=== PATIENT | male | born 1990 | race Caucasian/White ===

== ENCOUNTER 2024-04-26 01:08 | Emergency (ER) | payer OTHER, SELFPAY ==
--- NOTE | 2024-04-26 01:13 | ED.GENADULT ---
HPI - General Adult General Time Seen by Provider: 01:13 Date Seen: 04/26/24 Chief complaint: Skin/Abscess/Foreign Body Stated complaint: tongue foreign body Time Seen by Provider: 04/26/24 01:13 Source: patient Mode of arrival: ambulatory Limitations: no limitations History of Present Illness HPI narrative: 33-year-old male who comes in today with a foreign body in his tongue. He has a tongue piercing that was done about a year ago, couple days ago he took out the top portion and stem but the bottom ball was stuck in the tongue. He says since then he has had increased pain and swelling of the tongue. He denies runny nose, cough, difficulty swallowing or breathing. Related Data Home Medications ?Medication ?Instructions ?Recorded ?Confirmed No Known Home Medications 04/26/24 04/26/24 Allergies Allergy/AdvReac Type Severity Reaction Status Date / Time No Known Drug Allergies Allergy Verified 04/26/24 01:21 Exam Narrative: Exam Narrative: General: well nourished , NAD Head: Atraumatic and normocephalic ENT: External ears and external nose are normal. Moderate swelling of the tongue with some dysarthria, no open puncture wound, question of firm nodule in the middle of the tongue about 1 cm from the tip. Posterior pharynx without erythema. No cervical adenopathy, no tenderness of the anterior cervical area. Patient is handling secretions Eyes: Conjunctiva clear, pupils are equal reactive, external ocular motions are intact Neck: Full spontaneous range of motion of the neck Lungs: No respiratory distress Musculoskeletal: No tenderness or deformity Neurologic: No gross focal neurologic deficits Skin: No rashes Psych: Mood and affect are appropriate Const: Vital Signs, click to edit/add: Vital Signs - 24 hr 04/26/24 01:17 Temperature 100.2 F H Pulse Rate [Pulse Oximeter] 87 Respiratory Rate 18 Blood Pressure [Ri ght Upper Arm] 148/92 H Pulse Oximetry 99 Oxygen Delivery Me thod Room Air Course Course ED Course: Patient seen and examined, presents today with tongue swelling, foreign body in the tongue, and temperature 100.2?. On initial exam, there is symmetric diffuse swelling of the tongue but airway patent. Patient denies cough, nasal congestion, or other symptoms to explain mild fever although no tachycardia. Labs are ordered along with CT scan of the neck to evaluate for deeper space infection, fluid collection, and location foreign body. Reevaluation(s) Time of Reevaluation #1: 01:42 Reevaluation #1: Patient asked to see me again. He refuses lab testing and CT scan. He requests that I cut his tongue open to remove the foreign body. I explained to him that this not procedure that is within my scope practice and that without more clinical information, could not contact ENT for consultation. He does not want me to call the ENT doctor in and does not want to go to surgery or have any testing done in the emergency department. I discussed starting antibiotics to try to get the tongue swelling to improve an outpatient follow-up with ENT. I discussed that I do not recommend this course of action as tongue swelling could become worse and there may be some deeper space or posterior swelling that I cannot accurately evaluate without imaging. He adamantly refuses testing, and also was initially refusing antibiotics preferring to just take ibuprofen for this. I discussed that in setting of likely infection, not treating this would most definitely lead to worsening symptoms including increased pain, breathing and swallowing difficulty, and possible airway occlusion. He verbalized understanding and is agreeable to starting antibiotics. He is given information to follow-up with ENT, if swelling gets worse he should follow up as soon as possible. Vital Signs Vital signs: Initial Vital Signs Temperature 100.2 F H 04/26/24 01:17 Temperature Source Temporal Artery Scan 04/26/24 01:17 Pulse Rate 87 04/26/24 01:17 Pulse Rhythm Regular 04/26/24 01:17 Pulse Strength 3+ Normal 04/26/24 01:17 Respiratory Rate 18 04/26/24 01:17 Blood Pressure 148/92 H 04/26/24 01:17 Blood Pressure Mean 110 H 04/26/24 01:17 Blood Pressure Position Sitting 04/26/24 01:17 Pulse Oximetry 99 04/26/24 01:17 Oxygen Delivery Method Room Air 04/26/24 01:17 Vital Signs Temperature 100.2 F H 04/26/24 01:17 Pulse Rate 87 04/26/24 01:17 Respiratory Rate 18 04/26/24 01:17 Blood Pressure 148/92 H 04/26/24 01:17 Pulse Oximetry 99 04/26/24 01:17 Oxygen Delivery Method Room Air 04/26/24 01:17 Temperature 100.2 F H 04/26/24 01:17 Pulse Rate 87 04/26/24 01:17 Respiratory Rate 18 04/26/24 01:17 Blood Pressure 148/92 H 04/26/24 01:17 Pulse Oximetry 99 04/26/24 01:17 Oxygen Delivery Method Room Air 04/26/24 01:17 Discharge Plan Discharge Clinical Impression: Infected foreign body, Infected pierced tongue Patient Disposition: Left Against Medical Advice Condition: Stable Additional Instructions: You likely have an infected foreign body in your tongue. This can cause swelling of the tongue but can spread, causing swelling in the back of the throat or under the tongue, all of which can cause difficulty breathing or swallowing, permanent disability including loss of voice, speech difficulty, and . Recommended treatment in the emergency department included blood work to evaluate for severity of infection as well as CT scan to evaluate for the extent of infection. You have declined this testing. Take antibiotics as prescribed and call the ear nose throat clinic (Dr. Jackson) in the morning for follow-up appointment. If you develop breathing or swallowing difficulty, or decide you want to have emergency department evaluation and treatment, return to the emergency department. If you are not having breathing or swallowing difficulty but want to be re-evaluated, consider going to [facility] in [place], [facility], [facility], or [facility]. These are all higher level of care facilities that have specialists in house who can facilitate year treatment. In addition to taking antibiotics, you can take a probiotic or eat yogurt daily to help maintain good intestinal health. Activity Level: Activity as Tolerated Discharge Diet: Regular Prescriptions: No Action No Known Home Medications Follow Up/Referrals: Danny Jackson MD [Staff Physician] - Stand Alone Forms: [employer] Info Instructions
[2024-04-26 01:17] VITALS: BP 148/92; PULSE 87; RESP 18; TEMP 37.9; O2SAT 99; BMI 23.7
== END 2024-04-26 02:05 | disposition left against medical advice (07) ==
PROVIDERS: Emergency Provider Family Medicine
DX: T18.0XXA Foreign body in mouth, initial encounter (principal); L08.9 Local infection of the skin and subcutaneous tissue, unspecified
CPT/HCPCS: 80048; 85025; 99283